=== PATIENT | female | born 1980 | race Caucasian/White ===

== ENCOUNTER 2019-04-28 07:25 | Emergency (ER) | payer OTHER, MEDICAID ==
[~2019-04-28] VITALS: Ht 154.9 cm; Wt 104.3 kg
[~2019-04-28 07:25] MED LIST: MECLIZINE 25 MG25 M1 PO; NOHOMEMEDICATIONS
[2019-04-28 08:01] LABS: ABSOLUTE EOSINOPHILS 0.1 thou/uL (0.0-0.7); ABSOLUTE LYMPHOCYTES 2.2 thou/uL (0.8-5.3); ABSOLUTE MONOCYTES 0.4 thou/uL (0.0-1.2); ABSOLUTE NEUTROPHILS 4.1 thou/uL (1.6-8.1); BASOPHILS 0.4 %; EOSINOPHILS 1.5 %; HEMATOCRIT 39.6 % (37.0-47.0); HEMOGLOBIN 13.5 gm/dL (12.0-15.0); LYMPHOCYTES 31.7 %; MCH 30.9 pg (26.0-34.0); MCHC 34.1 g/dL (28.0-37.0); MCV 90.5 fL (80.0-100.0); MONOCYTES 5.5 %; MPV 7.2 fl. (7.2-11.1); NUCLEATED RBCS 0 /100WBC; PLATELET COUNT* 244 thou/uL (150-400); POLYS 60.9 %; RBC 4.37 mil/uL (4.20-5.00); RDW-CV 12.9 % (10.5-14.5); WBC 6.8 thou/uL (4.0-11.0)
[2019-04-28 08:13] LABS: APTT 28.9 Seconds (25.0-31.3); PROTIME 10.1 Seconds (9.20-11.50)
[2019-04-28 08:14] LABS: CREATININE 0.9 mg/dL (0.6-1.3)
[2019-04-28 08:17] LABS: URINE BILIRUBIN NEGATIVE (Negative); URINE BLOOD TRACE (Negative); URINE CLARITY CLEAR; URINE COLOR YELLOW; URINE GLUCOSE-RANDOM NEGATIVE (Negative); URINE KETONES NEGATIVE (Negative); URINE LEUKOCYTES-REFLEX 1+ (Negative); URINE NITRITE-REFLEX NEGATIVE (Negative); URINE PROTEIN NEGATIVE (Negative); URINE UROBILINOGEN 0.2 E.U./dl (0.2-1.0)
[2019-04-28 08:24] LABS: ALBUMIN 3.4 g/dL (3.4-5.0); TOTAL BILIRUBIN 0.5 mg/dL (<0.1-1.0); TOTAL PROTEIN 7.9 g/dL (6.4-8.2)
[2019-04-28 08:26] LABS: SQUAMOUS >10 Many /LPF (0-3)
[2019-04-28 08:27] LABS: BACTERIA-REFLEX 1-9 Few /HPF (None Seen); URINE RBC 3-10 Few /HPF (0-2); URINE WBC-REFLEX None Seen /HPF (0-5)
[2019-04-28 08:28] LABS: CASTS None Seen /LPF (None Seen); CRYSTALS None Seen /LPF (None Seen); MUCUS None Seen strn/LPF (None Seen)
--- NOTE | 2019-04-28 09:00 | EKG ---
[place] [address] ELECTROCARDIOGRAM REPORT Name: VIN BHATIA Room: [facility]#: [id number] Admission: 04/28/19 Attend Phys: Discharge: Date of : 82 Report #: [id number] THIS REPORT FOR: //name// 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
[2019-04-28] MEDS ORDERED: TRANSDERM-SCOP1 EACH TRANSDERM (09:28)
[2019-04-28 10:20] VITALS: BP 134/85
== END 2019-04-28 10:21 | disposition home or self-care (01) ==
LOC: M.ERS 07:25
PROVIDERS: Family Medicine
DX: R42 Dizziness and giddiness (principal); Z98.890 Other specified postprocedural states

== ENCOUNTER 2019-06-09 09:34 | Emergency (ER) | payer OTHER, MEDICAID ==
[~2019-06-09] VITALS: Ht 154.9 cm; Wt 99.8 kg
[~2019-06-09 09:34] MED LIST changes: +TRANSDERM-SCOP1 EACH TRANSDERM
[2019-06-09 09:43] VITALS: BP 140/91
[2019-06-09] MEDS ORDERED: TESSALON PERLE100 M1 PO (09:53)
== END 2019-06-09 10:02 | disposition home or self-care (01) ==
LOC: M.ERS 09:34
DX: B34.9 Viral infection, unspecified (principal)

== ENCOUNTER → 2019-10-11 | Outpatient (CLI) | payer OTHER ==
[~2019-10-11] MED LIST changes: +TESSALON PERLE100 M1 PO
== END ==
LOC: M.ULTRA 12:29
DX: M79.605 Pain in left leg (principal)